=== PATIENT | male | born 1965 | race Caucasian/White ===

== ENCOUNTER 2017-12-01 14:31 | Inpatient (IN) | END 2017-12-10 20:50 | DRG 234 ==

== ENCOUNTER 2017-12-18 13:00 | Inpatient (IN) | END 2017-12-29 18:40 | disposition home health service (06) | DRG 246 ==

== ENCOUNTER 2018-01-02 23:16 | Inpatient (IN) | END 2018-01-21 12:45 | disposition home or self-care (01) | DRG 246 ==

== ENCOUNTER 2018-01-26 19:21 | Inpatient (IN) | END 2018-01-28 11:30 | disposition home or self-care (01) | DRG 300 ==